=== PATIENT | male | born 1990 | race African-American/Black ===

== ENCOUNTER 2022-10-03 15:39 | Emergency (ER) | payer SELFPAY ==
[~2022-10-03] VITALS: Ht 185.4 cm; Wt 68.0 kg
[2022-10-03 15:46] VITALS: BP 126/80
[2022-10-03 18:51] LABS: BASOPHILS % 0.4 % (0.0-2.0); EOSINOPHILS % 0.1 % (0.0-5.0); HEMATOCRIT. 38.3 % (42.0-52.0); HEMOGLOBIN. 13.1 g/dL (14.0-18.0); LYMPHOCYTES % 23.4 % (20.0-50.0); MEAN CORPUSCULAR HEMOGLOBIN 31.1 pg (28.0-32.0); MEAN CORPUSCULAR VOLUME 91.1 fL (80.0-94.0); MEAN PLATELET VOLUME 7.6 fl (7.4-10.4); MONOCYTES % 7.1 % (2.0-8.0); PLATELET 419 x1000/uL (130-400); RED CELL DISTRIBUTION WIDTH 13.2 % (11.6-14.6)
[2022-10-03 19:00] LABS: CHLORIDE 110 mEq/L (98-107)
[2022-10-03 19:10] LABS: ETHANOL BLOOD < 10 mg/dL
[2022-10-03] MEDS ORDERED: POTASSIUM CHLORIDE 20MEQ TABLET SR PO ONE (19:30)
== END 2022-10-03 21:42 | disposition home or self-care (01) ==
LOC: ER 15:39
DX: R55 Syncope and collapse (principal); E87.6 Hypokalemia
CPT/HCPCS: 36415; 71045; 80053; 80307; 80320; 80329; 85025; 93005; 99285; G0480